=== PATIENT | female | born 1990 | race Two or more races ===

== ENCOUNTER 2022-06-18 02:49 | Inpatient (IN) | payer OTHER ==
[~2022-06-18] VITALS: Ht 162.6 cm; Wt 68.0 kg
[2022-06-18] MEDS ORDERED: PRENATAL TABLE1 EAC1 PO (04:13)
[2022-06-18] MEDS ORDERED: IRON240 MG PO (04:13)
== END 2022-06-20 13:22 | disposition home or self-care (01) | DRG 807 ==
LOC: OB/GYN 02:49 → LDR 02:49 → OB/GYN 06:51
PROVIDERS: ADMIT Specialist; ATTEND Specialist
PROC: 10E0XZZ Delivery of Products of Conception, External Approach (ICD-10-PCS; principal; 2022-06-18)
PROC: 0UQMXZZ Repair Vulva, External Approach (ICD-10-PCS; 2022-06-18)
PROC: 4A1HXCZ Monitoring of Products of Conception, Cardiac Rate, External Approach (ICD-10-PCS; 2022-06-18)
DX: O70.0 First degree perineal laceration during delivery (principal); Z3A.37 37 weeks gestation of pregnancy; Z37.0 Single live birth; Z20.822 Contact with and (suspected) exposure to COVID-19